=== PATIENT | female | born 1995 | race Caucasian/White ===

== ENCOUNTER 2018-10-22 08:00 | Outpatient (CLI) | payer MEDICAID | END 2018-10-22 23:59 | disposition home or self-care (01) | LOC: LAB.R 08:00 | PROVIDERS: ATTEND Obstetrics & Gynecology | DX: Z36.85 Encounter for antenatal screening for Streptococcus B (principal); O09.93 Supervision of high risk pregnancy, unspecified, third trimester | CPT/HCPCS: 87491; 87591; 87797 ==

== ENCOUNTER 2018-10-22 14:12 | Outpatient (CLI) | payer MEDICAID ==
[2018-10-22 14:50] VITALS: BP 113/66
[2018-10-22 15:41] LABS: HB2 TOTAL 14.1 g/dL; HEMOGLOBIN A1C 0.43 g/dL; HEMOGLOBIN A1C % 4.9 % (4.6-6.2)
--- NOTE | 2018-10-22 18:27 | PROVIDER PROGRESS NOTE ---
Subjective - Subjective Subjective: Pt here for eval due to S<<D. NST is category 1, UC are irregular. JUSTIN 13, EFW 11%ile, AC 15%ile. Right 6mm pyelectasis, Left 5mm--is mild. Placenta is grade 2 and distal femoral epiphysis is seen c/w term . Remaining OB labs drawn and are pending. Discussed that fetus is close to IUGR but not quite. FKC's reviewed and emphasized. Pt voices understanding of importance. Labor precautions reviewed. F/u in clinic in 6d. Objective - Vital Signs/Intake & Output Vital Signs: Vital Signs x48h Temp Pulse Resp BP Pulse Ox 10/22/18 14:26 98.1 F 88 18 113/66 97 - Lab Results Other Labs: Lab Results x24hrs 10/22/18 10/22/18 Range/Units 15:08 15:08 Glycated Hemoglobin 4.9 (4.6-6.2) % Estim Average Glucose 94 (70-100) Blood Type A POSITIVE Antibody Screen NEGATIVE
[2018-10-22 19:31] LABS: MUDS CUTOFF CONCENTRATIONS CUTOFF CONC BELOW:
--- NOTE | 2018-10-22 19:39 | Ultrasound Report ---
Reason: size less than dates, growth Procedure Date: 10/22/2018 Accession Number: [id number] / [id number] Procedure: US - OB F/U or Repeat CPT Code: FULL RESULT: EXAM: FOLLOW-UP OBSTETRICAL ULTRASOUND EXAM DATE: 10/22/2018 04:57 PM. CLINICAL HISTORY: Size less than dates, growth. COMPARISON: None. TECHNIQUE: Real-time sonographic evaluation of the fetus performed by the commercial artist lettering. Multiple claims service representative static images were saved for review. DATING: Established EGA 36 weeks 4 days with RON 11/15/2018 based on stated dates. EGA 34 weeks 3 days with RON 11/28/2018 based on current ultrasound. GENERAL EVALUATION Celestin . Cardiac activity: 135 bpm. movement: Visualized. Presentation: Cephalic. Placenta: Fundal position. Amniotic fluid: Normal. JUSTIN 13.4 cm. MVP 4.7 cm. BIOMETRY Bi-Parietal Diameter (BPD): 8.8 cm, 35 weeks 2 days Head Circumference (HC): 31.2 cm, 34 weeks 6 days Abdominal Circumference (AC): 30.9 cm, 34 weeks 6 days Femur Length (FL): 6.5 cm, 33 weeks 5 days Estimated Weight: 2459 grams, 11th percentile. ANATOMY The right renal pelvis measures 6.1 mm in diameter and the left 5.5 mm. IMPRESSION: 1. Celestin 34 week 3 day gestation for RON 11/15/2018 based on current ultrasound. Age based on stated dates, 36 weeks 4 days. 2. Borderline renal pyelectasis. RADIA
[2018-10-22 19:51] LABS: AMPHETAMINE SCREEN,URINE NEGATIVE (NEGATIVE); BENZODIAZEPINES SCREEN, URINE NEGATIVE (NEGATIVE); COCAINE SCREEN URINE NEGATIVE (NEGATIVE); METHADONE SCREEN, URINE NEGATIVE (NEGATIVE); METHAMPHETAMINES SCREEN, URINE NEGATIVE (NEGATIVE); OPIATE SCREEN, URINE NEGATIVE (NEGATIVE); OXYCODONE SCREEN, URINE NEGATIVE (NEGATIVE); PROPOXYPHENE SCREEN, URINE NEGATIVE (NEGATIVE); TRICYCLIC ANTIDEPRESSANT,URINE NEGATIVE (NEGATIVE)
[2018-10-24 13:08] LABS: HEPATITIS C ANTIBODY NON-REACTIVE (NON-REACTIVE)
== END 2018-10-22 18:30 | disposition home or self-care (01) ==
LOC: WFO 14:12 → FBP 14:14 → WFO 18:30
PROVIDERS: ATTEND Obstetrics & Gynecology
DX: O36.5930 Maternal care for other known or suspected poor fetal growth, third trimester, not applicable or unspecified (principal); O09.93 Supervision of high risk pregnancy, unspecified, third trimester; Z36.85 Encounter for antenatal screening for Streptococcus B; Z3A.36 36 weeks gestation of pregnancy
CPT/HCPCS: 36415; 59025; 76816; 80306; 83036; 86787; 86803; 86850; 86900; 86901; 87086; 87491; 87591; 87797

== ENCOUNTER 2018-11-12 16:36 | Outpatient (CLI) | payer MEDICAID ==
--- NOTE | 2018-11-12 18:03 | Ultrasound Report ---
Reason: UTERINE SIZE DATE DISCREPANCY, THIRD TRIMESTER Procedure Date: 11/12/2018 Accession Number: [id number] / [id number] Procedure: US - OB F/U or Repeat CPT Code: FULL RESULT: EXAM: FOLLOW-UP OBSTETRICAL ULTRASOUND EXAM DATE: 11/12/2018 05:29 PM. CLINICAL HISTORY: UTERINE SIZE DATE DISCREPANCY. THIRD TRIMESTER. COMPARISON: OB F/U OR REPEAT 10/22/2018 4:57 PM. TECHNIQUE: Real-time sonographic evaluation of the fetus performed by the hooking machine operator. Multiple used equipment sales representative static images were saved for review. DATING: Established EGA 39 weeks 4 days with RON 11/15/2018 based on stated gestational age. RON 11/28/2018 based on prior ultrasound. EGA 34 weeks 5 days with RON 12/19/2018 based on the current ultrasound. GENERAL EVALUATION Celestin . Cardiac activity: 124 bpm. movement: Visualized. Presentation: Cephalic. Placenta: Fundal and left lateral position. Amniotic fluid: Low normal. JUSTIN 6.6 cm. MVP 2.7 cm. SD ratio: 2.6-3.9. BIOMETRY Bi-Parietal Diameter (BPD): 8.7 cm, 35 weeks 1 day Head Circumference (HC): 31.0 cm, 34 weeks 5 days Abdominal Circumference (AC): 30.6 cm, 34 weeks 4 days Femur Length (FL): 6.7 cm, 34 weeks 3 days Estimated Weight: 2477 g, less than 3rd percentile for 39 weeks 4 days. ANATOMY Prominent renal pelves noted, 6.2 mm on the right, 6.3 mm on the left. IMPRESSION: 1. Celestin live intrauterine with gestational age 34 weeks 5 days based on current ultrasound, 5 weeks less than expected. 2. Estimated weight is 3rd percentile for stated dating. 3. Low normal JUSTIN of 6.6 cm, with MVP2.7 cm. RADIA The call report notification system was initiated by Dr. Sánchez Mendes at 05:58 PM on 11/12/2018. ADDENDUM: 11/12/18 18:50 The above call report findings were discussed with Dr. Colby by Dr. Sánchez Mendes at 06:51 PM on 11/12/2018.
== END 2018-11-12 16:37 | disposition home or self-care (01) ==
LOC: DI 16:36
PROVIDERS: ATTEND Obstetrics & Gynecology
DX: O26.843 Uterine size-date discrepancy, third trimester (principal); Z3A.34 34 weeks gestation of pregnancy
CPT/HCPCS: 76816

== ENCOUNTER 2018-11-12 20:35 | Inpatient (IN) | payer MEDICAID ==
[2018-11-12] MEDS ORDERED: SODIUM CHLORIDE FLUSH 0.9% 10 ML SYRINGE IVP PRN (20:46)
[2018-11-12] MEDS ORDERED: SODIUM CHLORIDE FLUSH 0.9% 10 ML SYRINGE ONE (20:50)
[2018-11-12 21:20] LABS: BASOPHILS # (AUTO) 0.1 10^3/uL (0.0-0.1); BASOPHILS % (AUTO) 0.4 %; EOSINOPHILS # (AUTO) 0.1 10^3/uL (0.0-0.7); EOSINOPHILS % (AUTO) 0.8 %; HGB - HEMOGLOBIN 12.8 g/dL (12.0-16.0); LYMPHOCYTES # (AUTO) 2.7 10^3/uL (1.5-3.5); LYMPHOCYTES % (AUTO) 16.9 %; MEAN CORPUSCULAR HEMOGLOBIN 30.1 pg (27.0-31.0); MEAN CORPUSCULAR HGB CONC 34.2 g/dL (32.0-36.0); MEAN PLATELET VOLUME 8.5 fL (7.9-10.8); MONOCYTES # (AUTO) 1.2 10^3/uL (0.0-1.0); MONOCYTES % (AUTO) 7.4 %; NEUTROPHILS % (AUTO) 74.5 %; PLT - PLATELET COUNT 256 10^3/uL (130-450); RED BLOOD COUNT 4.25 10^6/uL (4.20-5.40); RED CELL DISTRIBUTION WIDTH 13.4 % (12.0-15.0); WHITE BLOOD COUNT 16.1 x10^3/uL (4.8-10.8)
[2018-11-12 21:31] LABS: ALBUMIN 3.1 g/dL (3.2-5.5); ALBUMIN/GLOBULIN RATIO 0.8 (1.0-2.2); BILIRUBIN,TOTAL 0.4 mg/dL (0.2-1.0); CREATININE 0.6 mg/dL (0.4-1.0); TOTAL PROTEIN 7.2 g/dL (6.7-8.2)
[2018-11-12] MEDS ORDERED: CARBOPROST TROMETHAMINE 250 MCG/ML AMP IM PRN (21:48)
[2018-11-12] MEDS ORDERED: TERBUTALINE 1 MG/ML VIAL SUBQ PRN (21:48)
[2018-11-12] MEDS ORDERED: miSOPROStol 200 MCG TABLET PR PRN (21:48)
[2018-11-12] MEDS ORDERED: ONDANSETRON 4 MG/2 ML VIAL IVP PRN (21:48)
[2018-11-12] MEDS ORDERED: OXYTOCIN/SODIUM CHLORIDE 500 ML IV PRN (21:48)
[2018-11-12] MEDS ORDERED: OXYTOCIN/SODIUM CHLORIDE 500 ML IV SCH (22:00)
[2018-11-12] MEDS: LACTATED RINGERS 1,000 ML IV SCH (22:29)
[2018-11-12] MEDS: SODIUM CHLORIDE FLUSH 0.9% 10 ML SYRINGE IVP SCH (22:30)
--- NOTE | 2018-11-13 00:24 | PROVIDER PROGRESS NOTE ---
Labor Progress Note - Labor Progress Note Labor Progress Note/Additional Text: Feeling some mild cramping intermittently. FHT with normal baseline and normal LTV. Good accelerations including occasionally during contractions. 2 variable decelerations at 23:49--both lasting 10 seconds--one with oni of 90 and the other oni 100. [place] 3 UC in 10min A/P: 23yo G1 at 39w6d by 25w US here for IOL due to IUGR without interval growth in the past 3w. 2500g fetus. GBS neg, vertex, category 1 tracing, normal contraction stress test. Will stop pitocin. Start misoprostol 1h later and continue until ellison score is 6 or greater. OK to eat. Saline lock IV. Plan for routine IOL with close attention to monitoring/ intolerance. P:C ratio not done yet--pt has not voided since her void on arrival.
[2018-11-13 00:54] LABS: CREATININE,URINE 215.3 mg/dL; PROTEIN/CREATININE RATIO,URINE 0.2 (<=0.2)
[2018-11-13] MEDS: miSOPROStol 100 MCG TABLET BC SCH ×4 (01:42→17:55)
--- NOTE | 2018-11-13 02:05 | HISTORY & PHYSICAL EXAMINATION ---
DATE OF SERVICE: 11/12/2018 Physician: Milvia Darling MD CHIEF COMPLAINT: Told to come to labor and delivery for induction. HISTORY OF PRESENT ILLNESS: The patient has been understandably anxious since being called today and asked to come into labor and delivery for induction of labor. She has felt some random tightening and cramping sensations throughout the day. Yesterday, she had a period of half an hour when she felt significant regular, painful cramps. No vaginal bleeding, no leaking of fluid. The patient has experienced good movement daily. No headaches, visual changes, or upper abdominal pain. No change in swelling. No fevers or feeling poorly. PAST MEDICAL HISTORY 1. Ongoing marijuana use, daily, last use was 11/11/2018. 2. Former heavy meth and alcohol use, patient quit the use in May or early June. PAST SURGICAL HISTORY: Tonsillectomy and wisdom teeth removal. ALLERGIES: NO KNOWN DRUG ALLERGIES. MEDICATIONS: vitamins and iron. Patient recently finished a course of antibiotics for otitis media. FAMILY HISTORY: No anesthesia problems or defects. SOCIAL HISTORY: Patient smokes marijuana daily. She does not use tobacco and has not throughout the . No alcohol or meth use since May or June. She lives in a trailer here with friends and feels safe at home. She transferred her care from [place] late in her . She has received a social work consult. OBSTETRIC HISTORY: G1 is current. VACCINES: Patient received both influenza and Tdap vaccines on 10/22/2018. DATING: Due date 11/14/2018 by a 25-week ultrasound, equivalent with a 21w US at a [facility] center. Patient's LMP was not known, but it was sometime in January or February. This would give a due date closer to late November. ULTRASOUNDS: Patient's initial ultrasound was done at 25 weeks. Her anatomy ultrasound was normal except for prominent bilateral renal pelvises in the fetus. Her most recent ultrasound shows a posterior fundal placenta. She is dated by a 25-week ultrasound. Followup at 36 weeks revealed estimated weight of 2459 grams. At that time, the fetus was in the eleventh percentile for growth and the growth was symmetric. On 11/12/2018, her estimated weight was 2477 grams, which corresponds to 5-1/2 pounds. This put the fetus in the third percentile for growth, with symmetric features. JUSTIN 6.6, MVP 2.7. Patient's first recorded ultrasound was on 07/10/2018 at a crisis center with average ultrasound age of 21 weeks 4 days, consistent with a due date of 11/15/2018. OBSTETRIC PROBLEMS 1. Late initiation of care, as the patient was in denial. 2. Scant early care and a break in care due to her moving from [place] to here. 3. Father is not involved and patient is not sure of paternity. 4. Daily ongoing THC use. 5. Ongoing heavy meth and alcohol use up until about 18 weeks gestation. 6. Intrauterine growth restriction with EFW in the third percentile and no interval growth in the past three weeks. OBJECTIVE VITAL SIGNS: Blood pressure 126/96 when the patient was very anxious on arrival. This dropped to 126/73 about half an hour later. Heart rate 95, temperature 36.8, respirations 18. GENERAL: Patient is alert and is in no apparent distress. PSYCHIATRIC: Affect is anxious. Patient has good hygiene. HEENT: Unremarkable. HEART: Regular rate and rhythm. No clicks, rubs, gallops, or murmurs. LUNGS: Clear to auscultation bilaterally. ABDOMEN: Soft, nontender, nondistended other than her gravid state. Uterus is nontender. VAGINAL: 1 cm dilated, 0% effaced, -3 station, medium consistency, mid position. EXTREMITIES: No lower extremity edema. Patient has 3+ patellar reflexes bilaterally and 1 beat of clonus. LABORATORY DATA: Blood type A positive, antibody screen negative. Hematocrit initially was 38.6. Rubella immune. RPR negative. Hepatitis B negative. HIV negative. Gonorrhea and chlamydia negative. Hepatitis C negative. Group B strep negative. Varicella immune. Urine toxicology showed THC. NST shows a baseline of 135 beats per minute with moderate long-term variability. There are no decelerations. There are many accelerations present. [place] is remarkable for contractions every 3-6 minutes. They are not noticeable to the patient. ASSESSMENT AND PLAN: A 23-year-old G1 at 39 weeks 5 days by 25-week ultrasound with intrauterine growth restriction and no interval growth in the past 3 weeks. This is a clear indication for induction of labor. The etiology of her growth restriction is currently unknown, but likely due to meth use until 18 weeks. Preeclampsia is also a possibility, and she did have a mildly elevated blood pressure on arrival of 126/96. She is not having any symptoms of preeclampsia. She does have brisk reflexes, but no edema. Preeclampsia labs here are normal with AST, ALT and platelets. Her urine protein to creatinine ratio is pending. Aneuploidy is not likely, given normal anatomy ultrasounds. At the ultrasound today, her fluid was normal, but borderline. Her SD ratios were elevated at 3.9. Patient is currently experiencing some contractions and not having decelerations with those. We will start with a contraction stress test to ensure that she will tolerate labor. If the contraction stress test is normal, then we will proceed to cervical ripening tonight, followed by Pitocin augmentation in the morning. Patient was counseled that she is at an increased risk for section due to the IUGR and a greater chance of intolerance of labor. She will remain n.p.o. until the contraction stress test has been completed. Patient is group B strep negative, EFW is 5-1/2 pounds, NST is category 1. Poorly dated: Unfortunately, the only dating we have is a 25-week ultrasound. However, due to the lack of interval growth in the past 3 weeks, I do feel like induction of labor is indicated. Her 25-week ultrasound was consistent with a 21-week ultrasound that is not being used to formally date her, as this was performed at a [facility] center. This lends further credence to the fact that her due date is accurate. Mildly prominent renal pelvises on all of her ultrasounds. This is likely a normal variant given that she is carrying a male fetus. We will pass this along to pediatrics. Social history issues including drug use during this . She has done a great job in complete cessation of meth and alcohol, per her report. Drug tox was positive only for THC. Her THC use is ongoing. Patient has been connected with available resources and is status post social work consult. TD: 11/12/2018 22:46 DELROY
--- NOTE | 2018-11-13 07:39 | PROVIDER PROGRESS NOTE ---
Labor Progress Note - Labor Progress Note Labor Progress Note/Additional Text: Feeling mild cramping sometimes. No VB, no LOF. Good FM. AVSS except for one BP 116/98. Otherwise BPs generally 110-120s/60-70s Category 1 tracing with rare episodes of 10second variable decels [place] not picking up well. Last SVE -/-1 23yo G1 at 39w6d by 25w US with IUGR 3%ile no interval growth in 3w, elevated cord doppler but flow was maintained. GBS neg, vertex, EFW 2400g, cat 1 NST. Good ripening progress. Next SVE due at 10am. If ripe will transition to pit. If not then will stay with misoprostol. Elevated BP x3, likely due to pain/anxiety/spurious. Excellent BPs otherwise, P:C ratio normal, normal plts/AST/ALT, no sx. Will continue to obs.
--- NOTE | 2018-11-13 10:16 | PROVIDER PROGRESS NOTE ---
Labor Progress Note - Uterine Monitoring Uterine Monitoring Mode: positive: External toco : 2-5 Contraction Intensity: positive: Moderate (Some are 6/10) - Monitoring Heart Rate Baseline: 120 Heart Rate Variability: positive: Moderate (6-25 bmp) Accelerations: positive: Present, 15x15 Decelerations: positive: None Strip Review: positive: Category I - Vaginal Exam Dilation (in cm): 2 Effacement (%): 50 Station: 0 Cervical Position: Midposition - Labor Progress Note Labor Progress Note/Additional Text: 1. IUGR 2. low JUSTIN 6 3. reactive NST 4. Progresing in station renew Cytotec
--- NOTE | 2018-11-13 15:18 | PROVIDER PROGRESS NOTE ---
Labor Progress Note - Uterine Monitoring Uterine Monitoring Mode: positive: External toco : irregular Uterine Resting Tone: positive: Soft - Monitoring Monitor Mode: positive: External ultrasound Heart Rate Baseline: 130-40 Heart Rate Variability: positive: Moderate (6-25 bmp) Accelerations: positive: Present, 15x15 Decelerations: positive: None Strip Review: positive: Category I - Vaginal Exam Dilation (in cm): 2+ Effacement (%): 80 Station: 0 Cervical Position: Midposition - Labor Progress Note Labor Progress Note/Additional Text: Pt has been slowly progressing with cytotec. Discussed options with Pt. offered gaona bulb vs repeat cytotec. Proceeded with gaona bulb.
[2018-11-13] MEDS: fentaNYL 100 MCG/2 ML VIAL IVP PRN ×3 (15:55→18:29)
[2018-11-13] MEDS: SODIUM CHLORIDE FLUSH 0.9% 10 ML SYRINGE IVP SCH (15:56)
[2018-11-13] MEDS: LACTATED RINGERS 1,000 ML IV SCH (19:35)
[2018-11-13] MEDS ORDERED: LACTATED RINGERS 1,000 ML IV ONE ×2 (19:36→21:35)
[2018-11-13] MEDS ORDERED: fent/BUPIV 2 MCG/0.125% 250 ML EP ONE (19:55)
[2018-11-13] MEDS ORDERED: METHYLERGONOVINE 0.2 MG/ML AMP IVP ONE (20:19)
--- NOTE | 2018-11-13 20:26 | PROVIDER PROGRESS NOTE ---
Labor Progress Note - Uterine Monitoring Uterine Monitoring Mode: positive: External toco Contraction Frequency (min/apart): irregular Contraction Intensity: positive: Moderate Uterine Resting Tone: positive: Soft - Monitoring Monitor Mode: positive: External ultrasound Heart Rate Baseline: 120's Heart Rate Variability: positive: Moderate (6-25 bmp) Accelerations: positive: Present, 15x15 Decelerations: positive: None Strip Review: positive: Category I - Vaginal Exam Dilation (in cm): 7 Effacement (%): 80 Station: -2 Cervical Position: Midposition - Labor Progress Note Labor Progress Note/Additional Text: Epidural Placed. Merritt Pitocin AROM.
[2018-11-13] MEDS ORDERED: OXYTOCIN/SODIUM CHLORIDE 500 ML IV SCH (20:30)
[2018-11-13] MEDS ORDERED: METOCLOPRAMIDE 10 MG/2 ML VIAL IVP PRN (20:42)
[2018-11-13] MEDS ORDERED: ePHEDrine 50 MG/ML VIAL IVP PRN (20:42)
[2018-11-13] MEDS ORDERED: ONDANSETRON 4 MG/2 ML VIAL IVP PRN ×2 (20:42→20:45)
[2018-11-13] MEDS ORDERED: diphenhydrAMINE INJ 50 MG/ML VIAL IVP PRN (20:42)
[2018-11-13] MEDS ORDERED: LACTATED RINGERS 500 ML IV ONE (20:42)
[2018-11-13] MEDS ORDERED: NALBUPHINE 10 MG/ML AMP IVP PRN (20:42)
[2018-11-13] MEDS ORDERED: NALOXONE 0.4 MG/ML VIAL IVP PRN (20:42)
[2018-11-13] MEDS ORDERED: fent/BUPIV 2 MCG/0.125% 250 ML EP PRN (20:48)
[2018-11-13] MEDS ORDERED: TERBUTALINE 1 MG/ML VIAL SUBQ ONE ×2 (20:50→21:54)
[2018-11-13] MEDS ORDERED: LACTATED RINGERS 300 ML IV ONE (21:00)
[2018-11-13] MEDS ORDERED: SUCCINYLCHOLINE 200 MG/10 ML VIAL IVP ONE (22:00)
[2018-11-13] MEDS ORDERED: KETOROLAC 30 MG/ML VIAL IVP ONE (22:00)
[2018-11-13] MEDS ORDERED: fentaNYL 100 MCG/2 ML VIAL IVP ONE (22:00)
[2018-11-13] MEDS ORDERED: MORPHINE PF 5 MG/10 ML AMP EP ONE (22:00)
[2018-11-13] MEDS ORDERED: PROPOFOL 200 MG/20 ML VIAL IVP ONE (22:00)
[2018-11-13] MEDS ORDERED: DEXAMETHASONE 4 MG/ML VIAL IVP ONE (22:00)
[2018-11-13] MEDS ORDERED: ONDANSETRON 4 MG/2 ML VIAL IVP ONE (22:00)
[2018-11-13] MEDS ORDERED: ePHEDrine 50 MG/ML VIAL IVP ONE (22:00)
--- NOTE | 2018-11-13 22:36 | OPERATIVE REPORT ---
Operative Report - General Admit Date: 11/12/18 Procedure Date: 11/13/18 Planned Procedure: STAT LTC/S Pre-Op Diagnosis: 39.6 weeks, IUGR, Oligohydram, Deep decelerations Procedure Performed: STAT LTC/S Post Op Diagnosis: Same, LOP, Right Shoulder cord - Procedure Note Primary Surgeon: Mars Castro MD, Secondary Surgeon: Yamilka SNEED Anesthesia Provider: Angelo Arciniega CRNA Anesthesia Technique: Epidural, General ET tube Pathology: Placenta IV Fluids (mL): 800 Estimated Blood Loss (mL): 400 Urine Output (mL): 85 Indications: Deep decelerations Oligohydram Findings: Live Male infant LOP Apgars 7/9 Weight 6 lb 0 oz Complications: none - Other Other Information/Narrative: #[id number]
--- NOTE | 2018-11-13 22:37 | XRAY Report ---
Reason: POST OP XRAY Procedure Date: 11/13/2018 Accession Number: [id number] / [id number] Procedure: XR - Abdomen 1 View X-Ray CPT Code: 38286 FULL RESULT: EXAM: ABDOMEN RADIOGRAPHY EXAM DATE: 11/13/2018 10:12 PM. CLINICAL HISTORY: POST OP XRAY. COMPARISON: None. TECHNIQUE: 1 view. FINDINGS: Bowel Gas Pattern: Nonspecific bowel gas pattern. Other: None. IMPRESSION: No unexpected radiopaque foreign body. RADIA
--- NOTE | 2018-11-13 22:39 | ANESTHESIA ---
Pre-Anesthesia VS, & Labs - Diagnosis Active labor then decreased heart rate - Procedure Labor epidural, stat C section Vital Signs: Temp Pulse Resp BP Pulse Ox 36.0 C L 90 17 114/60 100 11/13/18 22:24 11/13/18 22:25 11/13/18 22:25 11/13/18 22:25 11/13/18 22:25 Height 5 ft 3.5 in Weight (kg) 73.482 kg Body Mass Index 28.2 - NPO Other (sips water) - Is Patient ?: Yes - Lab Results Current Lab Results: Laboratory Tests 11/12/18 21:12: WBC 16.1 H, RBC 4.25, Hgb 12.8, Hct 37.4, MCV 88.0, MCH 30.1, MCHC 34.2, RDW 13.4, Plt Count 256, MPV 8.5, Neut # (Auto) 12.0 H, Lymph # (Auto) 2.7, [place] # (Auto) 1.2 H, Eos # (Auto) 0.1, Baso # (Auto) 0.1, Absolute Nucleated RBC 0.00, Nucleated RBC % 0.0 11/12/18 21:12: Blood Type A POSITIVE, Antibody Screen NEGATIVE 11/12/18 21:12: Sodium 137, Potassium 3.5, Chloride 102, Carbon Dioxide 26, Anion Gap 9.0, BUN 7, Creatinine 0.6, Estimated GFR (MDRD) 124, Glucose 86, Calcium 9.0, Total Bilirubin 0.4, AST 20, ALT 14, Alkaline Phosphatase 114, Total Protein 7.2, Albumin 3.1 L, Globulin 4.1, Albumin/Globulin Ratio 0.8 L Fish Bones: 11/12/18 21:12 11/12/18 21:12 Home Medications and Allergies Active Medications Acetaminophen (Tylenol) 650 mg PO Q6H PRN PRN Reason: Pain or Fever Carboprost Tromethamine (Hemabate) 250 mcg IM ONCE PRN PRN Reason: Post- Hemorrhage Stop: 11/15/18 21:47 Diphenhydramine HCl (Benadryl Inj) 12.5 - 25 mg IVP Q6HR PRN PRN Reason: ITCHING Ephedrine Sulfate () 5 mg IVP Q5M PRN PRN Reason: For SBP<100;give until SBP>100 Fentanyl (Fentanyl) 50 mcg IVP Q1H PRN PRN Reason: PAIN Last Admin: 11/13/18 18:29 Dose: 50 mcg Oxytocin/Sodium Chloride (Pitocin/Sodium Chloride) 500 mls @ 1 mls/hr IV TITR CORKY; Protocol Fentanyl/Bupivacaine/Sodium Chlor (Fent/Bupiv 2 Mcg/0.125%) 250 mls @ 12 mls/hr EP .[id number] PRN PRN Reason: Analgesia Metoclopramide HCl (Reglan Inj) 10 mg IVP Q6HR PRN PRN Reason: Nausea / Vomiting Misoprostol (Cytotec) 800 mcg ID ONCE PRN PRN Reason: Post- Hemorrhage Stop: 11/15/18 21:47 Misoprostol (Cytotec) 50 mcg BC Q4H [facility] Last Admin: 11/13/18 17:55 Dose: Not Given Nalbuphine HCl (Nubain) 2.5 - 5 mg IVP Q4H PRN PRN Reason: ITCHING Naloxone HCl (Narcan) 0.1 mg IVP Q2M PRN PRN Reason: RR<8 Ondansetron HCl (Zofran Inj) 4 mg IVP Q4HR PRN PRN Reason: Nausea / Vomiting Ondansetron HCl (Zofran Inj) 4 mg IVP Q6HR PRN PRN Reason: Nausea / Vomiting Ondansetron HCl (Zofran Inj) 4 mg IVP Q4HR PRN PRN Reason: Nausea / Vomiting Sodium Chloride (Normal Saline Flush 0.9%) 10 ml IVP 0100,0900,1700 [facility] Last Admin: 11/13/18 15:56 Dose: 10 ml Sodium Chloride (Normal Saline Flush 0.9%) 10 ml IVP PRN PRN PRN Reason: NEEDED PER PROVIDER ORDERS Terbutaline Sulfate (Terbutaline) 0.25 mg SUBQ Q1H PRN PRN Reason: PER PHYSICIAN ORDER Last Admin: 11/13/18 20:51 Dose: 0.25 mg Allergies/Adverse Reactions: Allergies Allergy/AdvReac Type Severity Reaction Status Date / Time No Known Drug Allergies Allergy Verified 11/12/18 22:14 Anes History & Medical History - Anesthetic History Anesthesia Complications: reports: No previous complications Family history of Anesthesia Complications: Denies Family history of Malignant Hyperthermia: Denies - Medical History Cardiovascular: reports: None Pulmonary: reports: None Gastrointestinal: reports: None Urinary: reports: None Neuro: reports: None Musculoskeletal: reports: None Endocrine/Autoimmune: reports: None Blood Disorders: reports: None Skin: reports: None Smoking Status: Current every day smoker Psychosocial: reports: Depression - Surgical History Eyes Ears Nose Throat (EENT): Other Exam General: Alert, Oriented x3, Cooperative Dental: WNL Mouth Opening: Greater than 4 Fingerbreadths Neck Mobility: Normal Mallampati classification: II Thyromental Distance: greater than 6 cm Respiratory: Normal breath sounds Cardiovascular: Regular rate, Normal S1 Neurological: Normal speech Mental/Cognitive Status: Alert/Oriented X3 Cognitive Status: Within normal limits Plan Anesthesia Type: General, Epidural Consent for Procedure(s) Verified and Reviewed: Yes Code Status: Attempt Resuscitation ASA classification: 2-Mild systemic disease Is this case an emergency?: Yes
[2018-11-13] MEDS ORDERED: ONDANSETRON 4 MG/2 ML VIAL ONE (22:41)
[2018-11-13] MEDS ORDERED: SODIUM CHLORIDE FLUSH 0.9% 10 ML SYRINGE IVP PRN (22:48)
[2018-11-13] MEDS ORDERED: oxyCODONE 5 MG TABLET PO PRN (22:48)
[2018-11-13] MEDS ORDERED: ACETAMINOPHEN 1,000 MG/100 ML 100 ML IV ONE (22:58)
[2018-11-13] MEDS ORDERED: LACTATED RINGERS 1,000 ML IV SCH (23:00)
[2018-11-14] MEDS: SODIUM CHLORIDE FLUSH 0.9% 10 ML SYRINGE IVP SCH (00:11)
[2018-11-14] MEDS ORDERED: SODIUM CHLORIDE FLUSH 0.9% 10 ML SYRINGE IVP SCH (01:00)
[2018-11-14] MEDS: KETOROLAC 30 MG/ML VIAL IVP SCH ×4 (03:50→21:32)
[2018-11-14 05:48] LABS: BASOPHILS % (AUTO) 0.4 %; HGB - HEMOGLOBIN 12.7 g/dL (12.0-16.0); LYMPHOCYTES % (AUTO) 5.2 %; MEAN CORPUSCULAR HEMOGLOBIN 29.8 pg (27.0-31.0); MEAN CORPUSCULAR HGB CONC 33.8 g/dL (32.0-36.0); MEAN PLATELET VOLUME 8.7 fL (7.9-10.8); MONOCYTES % (AUTO) 6.6 %; NEUTROPHILS % (AUTO) 87.8 %; PLT - PLATELET COUNT 213 10^3/uL (130-450); RED BLOOD COUNT 4.27 10^6/uL (4.20-5.40); RED CELL DISTRIBUTION WIDTH 13.4 % (12.0-15.0)
[2018-11-14 05:52] LABS: ABNORMAL LYMPHS % (MANUAL) 0 %
[2018-11-14 06:12] LABS: BAND NEUTROPHILS % (MANUAL) 7 %; DIFFERENTIAL COMMENT MANUAL DIFFERENTIAL; LYMPHOCYTES # (MANUAL) 3.5 10^3/uL (1.5-3.5); LYMPHOCYTES % (MANUAL) 15 %; MONOCYTES # (MANUAL) 0.9 10^3/uL (0.0-1.0); NEUTROPHILS # (MANUAL) 18.6 10^3/uL (1.5-6.6); NEUTROPHILS % (MANUAL) 74 %; PLATELET ESTIMATE, MANUAL NORMAL (130-450,000) (NORMAL); RBC MORPHOLOGY (MULTIPLE) NORMAL APPEARANCE (NORMAL)
--- NOTE | 2018-11-14 07:03 | OPERATIVE REPORT ---
DATE OF SERVICE: 11/13/2018 Physician: Mars Castro MD PREOPERATIVE DIAGNOSES 1. 39.6 weeks. 2. Intrauterine growth restriction. 3. Oligohydramnios. 4. Deep decelerations. PROCEDURE PERFORMED: Stat low transverse section. POSTOPERATIVE DIAGNOSES 1. 39.6 weeks. 2. Intrauterine growth restriction. 3. Oligohydramnios. 4. Deep decelerations. 5. Left occiput posterior right shoulder cord. SURGEON: Mars Castro MD COMPARATIVE SOCIOLOGY PROFESSOR: NEDRA Aragon. ANESTHESIA: Angelo Arciniega CRNA ANESTHETIC: Epidural with general with endotracheal tube. MATERIAL TO PATHOLOGY: Placenta. INTRAVENOUS FLUIDS: 800 mL ESTIMATED BLOOD LOSS: 400 mL URINE OUTPUT: 85 mL FINDINGS UPON ENTERING THE UTERUS: The amniotic fluid was clear, but scant. The infant was noted to be in the left occiput posterior position. The cord was over the right shoulder. The cord appeared to be somewhat thin. DESCRIPTION OF PROCEDURE: Patient was placed in the supine position with a roll under her right hip. She was then prepped and draped, following placement of Merritt catheter. At this point, rapid sequence induction was accomplished, and then a Pfannenstiel incision was carried down through the subcutaneous tissue to the fascia. The fascia was incised transversely; then using both blunt and sharp dissection, it was freed from the rectus abdominis. The rectus was split along the midline. Peritoneum was entered. At this point, a bladder flap was developed utilizing Metzenbaum scissors. A low transverse uterine incision was accomplished using a #10 blade and bandage scissors. The incision was carried laterally using the finger spread technique. The 's head was noted to be in the left occiput posterior. There was scant fluid noted at the same time. The head was lifted out of the pelvis and then the 's head was delivered. There was a right shoulder cord, which was encountered at this point. The remainder of the infant was delivered without difficulty. appeared to be vigorous. The cord was doubly clamped, divided, and the was handed to the nursery team that was standing by. At this point, the placenta was manually delivered, noted to be posterior. The remainder of the membranes were removed with ring forceps. The uterus was exteriorized, wrapped with a moist lap and cleansed in the internal portion with a dry lap. The incision was then closed using a running locking suture of #0 Vicryl with an imbricating layer of #0 Vicryl. The incision was inspected for bleeding; none was noted. The uterus was tipped forward. The cul-de-sac was suctioned clear of any clot and estimated blood loss was made at this time. The cul-de-sac was irrigated with copious amounts of sterile saline. Uterus was delivered back in the abdominal cavity, following inspection of the tubes and ovaries. They appeared to be normal. The gutters were likewise irrigated. The incision was once again inspected, and there was noted to be some oozing at the right side. This was treated with a [id number] of 2-0 Vicryl. This appeared to cause the bleeding to cease. Then the peritoneum was closed using 2-0 Vicryl in a running suture. The rectus was reapproximated with two [id number]. The rectus showed no bleeding at this time, so it was irrigated and then the fascia was closed utilizing a looped PDS. The subcutaneous tissue was inspected. No bleeding noted, so it was closed utilizing a suture of 2-0 Vicryl. The incision itself was closed using 4-0 Monocryl. Then the wound was dressed with Mastisol, Steri-Strips, and then a dressing. The uterus was then expressed. Because no count was obtained before delivery, an x-ray was performed, and there was no evidence of any lap sponges or surgical instruments. At this point, patient was taken to recovery in stable condition. No sponge or needle count was performed prior to the surgery or after the surgery. TD: 11/13/2018 22:56 DELROY
[2018-11-14] MEDS: DOCUSATE SODIUM 100 MG CAPSULE PO SCH ×2 (08:33→21:33)
[2018-11-14] MEDS: SIMETHICONE CHEW 80 MG TABLET PO SCH ×3 (08:33→21:32)
[2018-11-14] MEDS: ACETAMINOPHEN 325 MG TABLET PO PRN ×2 (08:33→14:19)
--- NOTE | 2018-11-14 08:41 | PROVIDER PROGRESS NOTE ---
Subjective - General Admit Date: 11/12/18 Procedure Date: 11/13/18 Post Op Days: 1 Procedure Performed: STAT PLTC/S - Review of Systems Wound/Incisions: positive: Dressing dry and intact General: positive: No symptoms (Pain 3/10 with movement. Passing Flatus, good pain control) HEENT: positive: No symptoms Cardiovascular: positive: No symptoms Gastrointestinal: positive: No symptoms, Flatus Objective - Patient Data Reviewed Vital Signs: Yes Weight: Weight 11/12/18 11/13/18 11/14/18 23:59 23:59 23:59 Weight (kg) 73.482 kg Intake & Output: Intake and Output Totals x24h 11/12/18 11/13/18 11/14/18 23:59 23:59 23:59 Intake Total 191.883 Balance 191.883 - Lab Results Lab Results: 11/14/18 02:57 11/12/18 21:12 Other Lab Results: Lab Results x24hrs 11/14/18 Range/Units 02:57 WBC 23.0 H (4.8-10.8) x10^3/uL RBC 4.27 (4.20-5.40) 10^6/uL Hgb 12.7 (12.0-16.0) g/dL Hct 37.6 (37.0-47.0) % MCV 88.0 (81.0-99.0) fL MCH 29.8 (27.0-31.0) pg MCHC 33.8 (32.0-36.0) g/dL RDW 13.4 (12.0-15.0) % Plt Count 213 (130-450) 10^3/uL MPV 8.7 (7.9-10.8) fL Neut # (Auto) Not Reportable Lymph # (Auto) Not Reportable [place] # (Auto) Not Reportable Eos # (Auto) Not Reportable Baso # (Auto) Not Reportable Absolute Nucleated RBC Not Reportable Total Counted 100 Band Neuts % (Manual) 7 (0 - 10) % Abnorm Lymph % (Manual) 0 % Nucleated RBC % Not Reportable Neutrophils # (Manual) 18.6 H (1.5-6.6) 10^3/uL Lymphocytes # (Manual) 3.5 (1.5-3.5) 10^3/uL Monocytes # (Manual) 0.9 (0.0-1.0) 10^3/uL Eosinophils # (Manual) 0.0 (0-0.7) 10^3/uL Basophils # (Manual) 0.0 (0-0.1) 10^3/uL Differential Comment MANUAL DIFFERENTIAL Platelet Estimate NORMAL (130-450,000) (NORMAL) RBC Morph Micro Appear NORMAL APPEARANCE (NORMAL) - Imaging Results Radiology Imaging: positive: Final report received (no retained forign body) - Current Medications Current Medications: Current Medications Generic Name Dose Route Start Last Admin Trade Name Freq PRN Reason Stop Dose Admin Fentanyl 50 mcg 11/12/18 21:48 11/13/18 18:29 Fentanyl IVP 50 mcg Q1H PRN Administration PAIN Lactated Ringer's 1,000 mls @ 100 mls/hr 11/13/18 23:00 11/14/18 00:12 Lr IV 100 mls/hr .Q10H CORKY Administration Ketorolac Tromethamine 30 mg 11/13/18 23:00 11/14/18 03:50 Toradol Inj (30mg) IVP 11/14/18 17:01 30 mg Q6H CORKY Administration Misoprostol 50 mcg 11/13/18 01:30 11/13/18 17:55 Cytotec BC Not Given Q4H CORKY Ondansetron HCl 4 mg 11/12/18 21:48 11/13/18 22:37 Zofran Inj IVP 4 mg Q4HR PRN Administration Nausea / Vomiting Sodium Chloride 10 ml 11/13/18 01:00 11/14/18 00:11 Normal Saline Flush 0.9% IVP 10 ml 0100,0900,1700 CORKY Administration Sodium Chloride 10 ml 11/14/18 01:00 11/14/18 07:51 Normal Saline Flush 0.9% IVP 10 ml 0100,0900,1700 CORKY Administration Terbutaline Sulfate 0.25 mg 11/12/18 21:48 11/13/18 20:51 Terbutaline SUBQ 0.25 mg Q1H PRN Administration PER PHYSICIAN ORDER - Physical Exam Wound/Incisions: positive: Dressing dry and intact General Appearance: positive: No acute distress Respiratory: positive: Chest non-tender, No respiratory distress, Breath sounds nml Cardiovascular: positive: Regular rate & rhythm, No murmur, No gallop Abdomen: positive: Non-tender, Nml bowel sounds, No distention, Mass (U-3) Back: negative: CVA tenderness (R), CVA tenderness (L) Extremities: positive: Calf tenderness, Tristin's sign/cords Impression/Plan - Problem List Problem List: POD # 1 progressing well. Merritt out Ambulate ICS
[2018-11-14] MEDS: SODIUM CHLORIDE FLUSH 0.9% 10 ML SYRINGE IVP PRN ×2 (15:50→21:36)
[2018-11-14] MEDS ORDERED: KETOROLAC 30 MG/ML VIAL IVP SCH (21:15)
[2018-11-15] MEDS: ACETAMINOPHEN 325 MG TABLET PO PRN ×3 (02:40→20:20)
[2018-11-15] MEDS: IBUPROFEN 600 MG TABLET PO SCH ×4 (04:14→23:01)
--- NOTE | 2018-11-15 07:45 | PROVIDER PROGRESS NOTE ---
Subjective - General Admit Date: 11/12/18 Procedure Date: 11/13/18 Post Op Days: 2 Procedure Performed: STAT PLTC/S - Review of Systems Wound/Incisions: positive: Healing well General: positive: No symptoms (Pain 3/10 with movement. Passing Flatus, good pain control pt to take a Shower) HEENT: positive: No symptoms Cardiovascular: positive: No symptoms Gastrointestinal: positive: No symptoms, Flatus Objective - Patient Data Reviewed Vital Signs: Yes Vital Signs: Vital Signs x48h Temp Pulse Resp BP 11/15/18 05:52 37.1 C 77 18 121/69 11/15/18 02:24 36.6 C 76 18 116/66 Intake & Output: Intake and Output Totals x24h 11/13/18 11/14/18 11/15/18 23:59 23:59 23:59 Intake Total 191.883 900 Output Total 1750 Balance 191.883 -850 - Lab Results Lab Results: 11/14/18 02:57 11/12/18 21:12 - Current Medications Current Medications: Current Medications Generic Name Dose Route Start Last Admin Trade Name Freq PRN Reason Stop Dose Admin Acetaminophen 650 mg 11/12/18 21:48 11/15/18 02:40 Tylenol PO 650 mg Q6H PRN Administration Pain or Fever Docusate Sodium 100 mg 11/14/18 09:00 11/14/18 21:33 Colace 100mg Capsule PO 100 mg BID CORKY Administration Ibuprofen 600 mg 11/15/18 04:00 11/15/18 04:14 Motrin PO 600 mg Q6H CORKY Administration Simethicone 80 mg 11/14/18 06:00 11/14/18 21:32 Mylicon PO 80 mg TID CORKY Administration Sodium Chloride 10 ml 11/12/18 21:48 11/14/18 21:36 Normal Saline Flush 0.9% IVP 10 ml PRN PRN Administration NEEDED PER PROVIDER ORDERS - Physical Exam Wound/Incisions: positive: Healing well General Appearance: positive: No acute distress, Alert Respiratory: positive: Chest non-tender, No respiratory distress, Breath sounds nml Cardiovascular: positive: Regular rate & rhythm, No murmur, No gallop Abdomen: positive: Non-tender, Nml bowel sounds, No distention Extremities: negative: Calf tenderness, Tristin's sign/cords Impression/Plan - Problem List Problem List: POD #2 progressing Anticipate Discharge tomorrow
[2018-11-15] MEDS: SODIUM CHLORIDE FLUSH 0.9% 10 ML SYRINGE IVP PRN (10:27)
[2018-11-15] MEDS: SIMETHICONE CHEW 80 MG TABLET PO SCH ×3 (10:27→17:02)
[2018-11-15] MEDS: DOCUSATE SODIUM 100 MG CAPSULE PO SCH ×2 (10:27→20:41)
[2018-11-16] MEDS: ACETAMINOPHEN 325 MG TABLET PO PRN (04:26)
[2018-11-16] MEDS: IBUPROFEN 600 MG TABLET PO SCH ×2 (05:02→10:51)
[2018-11-16 09:37] VITALS: BP 125/66
--- NOTE | 2018-11-16 10:08 | Discharge Plan ---
Discharge Plan Disposition: 01 Home, Self Care Condition: Good Diet: Regular Activity Restrictions: no lifting heavier than baby Shower Restrictions: No Driving Restrictions: No No Smoking: If you smoke, Please STOP! Call for help. Follow-up with: Milvia Darling MD [Provider Admit Priv/Credential] - 1 Week
[2018-11-16] MEDS: DOCUSATE SODIUM 100 MG CAPSULE PO SCH (10:51)
--- NOTE | 2018-11-16 11:54 | DISCHARGE SUMMARY ---
Physician: Milvia Darling MD DATE OF ADMISSION: 11/12/2018 DATE OF DISCHARGE: 11/16/2018 ADMITTING DIAGNOSES 1. Intrauterine at 39 weeks and 5 days. 2. Intrauterine growth restriction. 3. Abnormal umbilical cord Dopplers. 4. History of drug use. DISCHARGE DIAGNOSES 1. Status post primary low transverse section for intolerance of labor. 2. History of drug use. OPERATIONS AND PROCEDURES: Primary low transverse section on 11/13/2018 for intoleran ce of labor. ESTIMATED BLOOD LOSS: 800 mL. FINDINGS: Live born male, weight 6 pounds 0 ounces, Apgars 7 and 9. HOSPITAL COURSE: The patient was admitted for induction of labor due to her intrauterine growth rest riction without interval growth in the past 3 weeks. She passed a contraction stress test and then w as ripened with misoprostol and then a Merritt bulb. She received Pitocin then. Once she became about 7 cm, she developed deep decelerations that were persistent and refractory to position changes and t erbutaline. She underwent section. POSTOPERATIVE COURSE: Medically unremarkable. By postoperative day 2-12, she was eating, ambulatin g, defecating and urinating without difficulties. She was bottle feeding and her breasts were feelin g okay. Her mood was good. Pain well controlled without narcotics. She was requesting discharge ho pr. 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 She was able to stop these on her own and has remained abstinent throughout her preg merline, per her report. She had a urine toxicology that was positive only for THC. She has been an o ngoin daily THC smoker. She has received a Cma Or Lpn consult. She has drug-free roommates at [facility], who have agreed to help her take care of the baby. She is bonding well. DISCHARGE PHYSICAL EXAMINATION GENERAL: The patient is alert and smiling, in no apparent distress and is cuddling her baby. ABDOMEN: Soft, nontender, nondistended. Fundus firm and 3 cm below the umbilicus. Incision clean, dry, and intact without erythema. LOWER EXTREMITIES: Without calf tenderness or cords. LABORATORY DATA: Post- hematocrit was 37. She did have one temperature this morning of 99.0. She is feeling well and has no signs of infection . We will obtain a normal temperature prior to discharge. DISCHARGE MEDICATIONS 1. Continue vitamins. 2. Ibuprofen p.r.n. pain. 3. Tylenol p.r.n. pain. 4. Colace p.r.n. to soften stool. DISCHARGE CONDITION: Good. DISPOSITION: Home. FOLLOWUP: In [address] Darling. TD: 11/16/2018 10:25
--- NOTE | 2018-11-16 14:50 | Labor Flowsheet ---
Labor Flowsheet Datetime Report Generated by CPN: 11/16/2018 14:50 Datetime: 11/13/2018 20:59 Communication Comments: TRANSFERED TO OR PER BED PER 2 STAFF RNS COY AND VERLLINDA FOR STAT CODY DEONTE ORDERED PER DR GIEM Datetime: 11/13/2018 20:52 COMMUNICATION Communication: Provider at Bedside Datetime: 11/13/2018 20:51 Tocolytics: Terbutaline 0.25mg Subcutaneous Datetime: 11/13/2018 20:50 VITAL SIGNS NBP Sys/Charo/Mean (mmHg): 93 : 40 : 52 Pulse: 75 Anesthesia Interventions Other: Ephedrine LaborFlag: Labor Datetime: 11/13/2018 20:49 SpO2 (%): 96 Datetime: 11/13/2018 20:45 UTERINE ACTIVITY Monitor Mode: External Quality: Mild Datetime: 11/13/2018 20:39 VAGINAL EXAM Dilatation (cm): 7.5 Effacement (%): 80 Station: -2 Exam by: DR GAMEZ Vaginal Bleeding: Small Cervix, Consistency: Moderate Cervix, Position: Midposition Datetime: 11/13/2018 20:38 ASSESSMENT A Monitor Mode: External US FHR Baseline Rate : 125 Variability: Moderate 6-25 bpm Decelerations: Prolonged Actions for Decelerations: IV Bolus Category: Category II Oxygen Amount (LPM): 10 Oxygen Method: Non-Rebreather Datetime: 11/13/2018 20:22 ANESTHESIA Anesthesia Plans: Epidural Epidural Procedure Other: Pump Started Datetime: 11/13/2018 20:21 Epidural Procedure: Loading Dose Datetime: 11/13/2018 20:00 Accelerations: 15X15 Datetime: 11/13/2018 19:54 PROCEDURE TIME OUT Procedure Verify: Correct Patient Identity; Correct Side and Site are Marked; Accurate Procedure Co nsent Form; Agreement on Procedure to be Done; Correct Patient Position; Safety Precautions Based on Patient History or Medication Use Epidural Positioning: Sitting Datetime: 11/13/2018 19:30 Stage of : Labor Provider Notified (Name): UTILITY LOCATOR Arciniega Notification Reason: Patient Request Datetime: 11/13/2018 19:06 Vaginal Exam Comments: gaona bulb fell out while pt in BR Datetime: 11/13/2018 19:00 Frequency (min): occasional Duration (sec): 30-50 Pattern: Normal: <= 5 Contractions in 10 Minutes Resting Tone (Palpate): Relaxed Contraction Comments: irritability Comments: fentanyl administered @ 1829 I/O Interventions: Up to BR Datetime: 11/13/2018 18:29 PAIN Pain Scale: 8 Pain Presence: Intermittent Pain Type: Cramping; Contraction Pain Location: Abdomen Pain Relief Measures: Pain Medication Given; Comfort Measures Analgesics/Sedatives: Fentanyl (mcg) @ 50 Datetime: 11/13/2018 18:19 Monitor Interventions for UA: [place] Adjusted Pain Coping: Other Pain Assessment Comments: Patient appears to be in pain. When questioned she expressed reluctance t o request pain medication due to her hx of addiction and her perception that she will be judged. TEACHING Instructional Method: Verbal Pain Management: IV Narcotics Teaching Comments: Discussed patient's history with her and provided reassurance that she does not need to be in unnecessary pain. Reinforced availability of pain management with IV Fentanyl until she is ready for epidural and encouraged patient to express her needs before her pain is unamanageable. Reassured pt that staff will not deny pain relief measures d/t her past hx of substance abuse. Pt rommel balized understanding. Datetime: 11/13/2018 18:00 FHR Baseline Changes: No Baseline Change Datetime: 11/13/2018 17:47 Respirations: 18 Temperature (C): 36.9 Comfort Measures: Breathing/Relaxation Datetime: 11/13/2018 17:45 Plan of Care: Labor; Induction Related: Activity and Rest Datetime: 11/13/2018 15:52 Medications: IV Narcotics Datetime: 11/13/2018 15:22 Patient Position/Activity: Right Lateral Patient Care Comments: Provided assistance with patient positioning for comfort. R lateral with pil lows behind for support and between knees. Datetime: 11/13/2018 13:20 Monitor Interventions for FHR: Ultrasound Adjusted Datetime: 11/13/2018 11:40 Unit Routine: Monitoring Datetime: 11/13/2018 10:22 Cervical Ripening Agents: Cytotec @ 50 Datetime: 11/13/2018 09:38 Labor/Induction: Cervical Ripening Datetime: 11/13/2018 07:20 MATERNAL ASSESSMENT Level of Consciousness: Fully Conscious DTR's/Clonus: DTRs 3+; No Clonus Headache: Denies Breath Sounds, Left: Clear and Equal Breath Sounds, Right: Clear and Equal Nausea/Vomiting: Denies RUQ Epigastric Pain: Denies Datetime: 11/13/2018 00:18 MEDICATIONS Pitocin (milliunits): Discontinued Datetime: 11/13/2018 00:00 Pitocin Checklist: At Least 1 Acceleration of 15 bpm x 15 Seconds in 30 Minutes or Adequate Variabi lity; No More than 1 Late Deceleration Occurred in Past 30 Minutes; No More than 2 Variable Decelerat ions > 60 Seconds in Duration and decreasing >60 bpm in 30 minutes; No More than 5 Uterine Contractio ns in 10 Minutes for any 20 Minute Interval; Uterus Palpates Soft between Contractions Datetime: 11/12/2018 22:32 PATIENT CARE IV/Blood Work: IV Infusing per Order
== END 2018-11-16 14:48 | disposition home or self-care (01) | DRG 787 ==
LOC: WFO 20:35 → FBP 20:39 → WFO 21:47 → FBP 21:48
PROVIDERS: ADMIT Obstetrics & Gynecology; ATTEND Obstetrics & Gynecology
PROC: 3E033VJ Introduction of Other Hormone into Peripheral Vein, Percutaneous Approach (ICD-10-PCS; 2018-11-13)
PROC: 3E0P7VZ Introduction of Hormone into Female Reproductive, Via Natural or Artificial Opening (ICD-10-PCS; 2018-11-13)
PROC: 10D00Z1 Extraction of Products of Conception, Low, Open Approach (ICD-10-PCS; principal; 2018-11-13 21:00)
DX: O36.5930 Maternal care for other known or suspected poor fetal growth, third trimester, not applicable or unspecified (principal); O99.323 Drug use complicating pregnancy, third trimester; O41.03X0 Oligohydramnios, third trimester, not applicable or unspecified; O76 Abnormality in fetal heart rate and rhythm complicating labor and delivery; Z3A.39 39 weeks gestation of pregnancy; Z37.0 Single live birth; F15.90 Other stimulant use, unspecified, uncomplicated; O99.314 Alcohol use complicating childbirth; F12.90 Cannabis use, unspecified, uncomplicated; O69.82X0 Labor and delivery complicated by other cord entanglement, without compression, not applicable or unspecified
CPT/HCPCS: 36415; 74018; 76816; 80053; 82570; 84156; 85025; 86850; 86900; 86901; A9270; J0131; J0330; J7120; 82803